=== PATIENT | female | born 1990 | race African-American/Black ===

== ENCOUNTER 2017-07-14 20:52 | Emergency (ER) | payer MEDICAID, OTHER ==
[~2017-07-14] VITALS: Ht 160 cm; Wt 61.2 kg
[2017-07-14 21:36] VITALS: BP 107/48
== END 2017-07-15 00:30 | disposition left against medical advice (07) ==
LOC: ER 21:45
DX: Z53.21 Procedure and treatment not carried out due to patient leaving prior to being seen by health care provider (principal); J45.909 Unspecified asthma, uncomplicated; Z88.0 Allergy status to penicillin